=== PATIENT | male | born 1945 | race Caucasian/White ===

== ENCOUNTER 2016-11-09 10:12 | Day surgery (SDC) | payer OTHER ==
--- NOTE | ~2016-11-09 | EGD ---
EGD REPORT [facility] [address] [place] [address] NAME: AN RAMIREZ : [birth year] STATUS : REG [facility]#: [id number] AGE: 71 ADM/REG DATE : 11/09/16 MR#: [id number] REPORT SERV DATE: 11/09/16 DICTATED BY: PERRY MOSS DATE: 11/09/16 REPORT STATUS : Draft TRANSCRIBED BY: [facility] DATE: 11/09/16 Endoscopy Center Patient Name: An Ramirez Date of : 1945 Attending MD: PERRY MOSS MD Procedure Date No Time: 11/09/2016 Procedure: Colonoscopy Indications: Screening for colorectal malignant neoplasm Referring MD: KALI BOYCE Medicines: as per anesthesia Complications: No immediate complications. Procedure: Pre-Anesthesia Assessment: - ASA Grade Assessment: III - A patient with severe systemic disease. After I obtained informed consent, the scope was passed under direct vision. Throughout the procedure, the patient's blood pressure, pulse, and oxygen saturations were monitored continuously. The PCF [id number] was introduced through the anus and advanced to the cecum, identified by appendiceal orifice and ileocecal valve. The colonoscopy was performed without difficulty. The patient tolerated the procedure. The quality of the bowel preparation was fair. Findings: The perianal and digital rectal examinations were normal. Multiple small and large-mouthed diverticula were found in the sigmoid colon and in the descending colon. Internal hemorrhoids were found during endoscopy and were mild. Impression: - Diverticulosis in the sigmoid colon and in the descending colon. - Internal hemorrhoids. Recommendation: - Continue present medications. Procedure Code(s): --- Professional --- 68533, Colonoscopy, flexible, proximal to splenic flexure; diagnostic, with or without collection of specimen(s) by brushing or washing, with or without colon decompression (separate procedure) Diagnosis Code(s): --- Professional --- K64.8, Other hemorrhoids K57.30, Diverticulosis of large intestine without EGD REPORT [facility] [address] [facility] [place] [address] NAME: AN RAMIREZ : [birth year] STATUS : REG [facility]#: [id number] AGE: 71 ADM/REG DATE : 11/09/16 MR#: [id number] REPORT SERV DATE: 11/09/16 DICTATED BY: PERRY MOSS. DATE: 11/09/16 REPORT STATUS : Draft TRANSCRIBED BY: [employer] DATE: 11/09/16 perforation or abscess without bleeding Z12.11, Encounter for screening for malignant neoplasm of colon CPT copyright 2013 [employer]. All rights reserved. The codes documented in this report are preliminary and upon office machine service supervisor review may be revised to meet current compliance requirements. PERRY MOSS MD 11/09/2016 1:02 PM This report has been signed electronically. Number of Addenda: 0 Note Initiated On: 11/09/2016 12:31 PM Scope Withdrawal Time 0 hours 10 minutes 46 seconds [address] [place] [address]
[~2016-11-09 10:12] MED LIST: ALTACE10 MG PO; CELEBREX2 PO; FLOMAX4 PO; GLUCPH PO; LANTUS SC; LIPITOR20 PO; NEUR100 PO; PROTONIX PO
== END 2016-11-09 23:59 | disposition home or self-care (01) ==
LOC: DMU 10:12
PROVIDERS: Internal Medicine Gastroenterology
PROC: 0DJD8ZZ Inspection of Lower Intestinal Tract, Via Natural or Artificial Opening Endoscopic (ICD-10-PCS; principal; 2016-11-09 11:30)
DX: Z12.11 Encounter for screening for malignant neoplasm of colon (principal); K64.8 Other hemorrhoids; K57.30 Diverticulosis of large intestine without perforation or abscess without bleeding; K21.9 Gastro-esophageal reflux disease without esophagitis; E11.9 Type 2 diabetes mellitus without complications; E78.00 Pure hypercholesterolemia, unspecified; Z90.49 Acquired absence of other specified parts of digestive tract
CPT/HCPCS: 82962